=== PATIENT | female | born 1960 | race Caucasian/White ===

== ENCOUNTER 2016-03-16 13:44 | Inpatient (IN) | payer MEDICARE, MEDICAID ==
[~2016-03-16] VITALS: Ht 175.3 cm; Wt 118.0 kg
[~2016-03-16 13:44] MED LIST: AMLO2.5T PO; ATEN25 PO; DIVA500T52 PO; FURO20 PO; GABA-533 PO; MULT-69 PO; PANT40TA25 PO; TRIF10 PO; VALS160T2 PO; VITAD1000 PO
[2016-03-16 14:53] LABS: BASOPHILS % (AUTO) 0.6 % (0.0-2.0); EOSINOPHILS % (AUTO) 1.4 % (1.0-6.0); HEMATOCRIT 46.7 % (36-46); HEMOGLOBIN 15.8 g/dL (12.0-16.0); LYMPHOCYTES # (AUTO) 2.7 K/uL (1.0-4.8); LYMPHOCYTES % (AUTO) 23.2 % (22.0-44.0); MEAN CORPUSCULAR HEMOGLOBIN 30.3 pg (26.0-34.0); MEAN CORPUSCULAR HGB CONC 33.8 G/dL (31.0-37.0); MEAN CORPUSCULAR VOLUME 90 fL (80-100); NEUTROPHILS # (AUTO) 7.6 K/uL (1.8-7.7); NEUTROPHILS % (AUTO) 65.8 % (40.0-70.0); PLATELET COUNT (AUTO) 260 K/uL (150-450); RED CELL DISTRIBUTION WIDTH 15.2 % (11.5-14.5); WHITE BLOOD COUNT (AUTO) 11.5 K/uL (4.5-11.0)
[2016-03-16 15:49] LABS: ANION GAP 20 mmol/L (8-16); CALCIUM, TOTAL 9.8 mg/dL (8.8-10.5); CARBON DIOXIDE 19 mmol/L (22-29); CHLORIDE 99 mmol/L (98-107); CREATININE 1.73 mg/dL (0.60-1.30); GLOMERULAR FILTR. RATE CALC 30 mL/min (>60); POTASSIUM 3.5 mmol/L (3.5-5.1); SODIUM SERUM 138 mmol/L (136-145); UREA NITROGEN, BLOOD 40 mg/dL (7-18)
[2016-03-16 15:53] LABS: ALANINE AMINOTRANSFERASE 96 U/L (12-78); ALBUMIN 4.4 g/dL (3.4-5.0); ASPARTATE AMINOTRANSFERASE 126 U/L (15-37); BILIRUBIN,TOTAL 1.9 mg/dL (0.1-1.0); TOTAL PROTEIN, SERUM 9.7 g/dL (6.4-8.2)
[2016-03-16] MEDS ORDERED: LORazepam 1 MG TABLET PO ONE (17:15)
[2016-03-16] MEDS ORDERED: SODIUM CHLORIDE 0.9% 500 ML IV ONE (17:15)
[2016-03-16] MEDS ORDERED: TRIFLUOPERAZINE HCL 10 MG TABLET PO ONE (17:15)
[2016-03-16] MEDS ORDERED: ZOLPIDEM TARTRATE 10 MG TABLET PO PRN (18:00)
[2016-03-16] MEDS ORDERED: LORazepam 2 MG TABLET PO PRN (18:00)
[2016-03-16] MEDS ORDERED: HALOPERIDOL 5 MG TABLET PO PRN (18:00)
[2016-03-16 19:57] VITALS: BP 118/76
[2016-03-16] MEDS ORDERED: TRIFLUOPERAZINE HCL 10 MG TABLET PO SCH (21:00)
[2016-03-17] MEDS ORDERED: -PHARMACY VACCINE NOTE- MISC ONE ×2 (07:45)
[2016-03-17] MEDS ORDERED: INFLUENZA VIRUS VACCINE QVS 2016-17 (3YR+)/PF 60 MCG/0.5 ML SYRINGE IM ONE (07:45)
[2016-03-17] MEDS ORDERED: IBUPROFEN 600 MG TABLET PO PRN (10:30)
[2016-03-17] MEDS ORDERED: BACITRACIN 28.4 GM OINTMENT TP PRN (10:30)
[2016-03-17] MEDS ORDERED: ACETAMINOPHEN 325 MG TABLET PO PRN (10:30)
[2016-03-17] MEDS ORDERED: PETROLATUM,WHITE 71 GM JELLY TP PRN (10:30)
[2016-03-17] MEDS ORDERED: MAG HYDROX/AL HYDROX/SIMETH ES 30 ML SUSPENSION UDCUP PO PRN (10:30)
[2016-03-17] MEDS ORDERED: LOPERAMIDE HCL 2 MG CAPSULE PO PRN (10:30)
[2016-03-17] MEDS ORDERED: ONDANSETRON HCL 4 MG TABLET PO PRN (10:30)
[2016-03-17] MEDS ORDERED: ALBUTEROL SULFATE HFA 90 MCG/PUFF 8 GM INHALER IH PRN (10:30)
[2016-03-17] MEDS ORDERED: MAGNESIUM HYDROXIDE SUSPENSION 30 ML UDCUP PO PRN (10:30)
[2016-03-17] MEDS ORDERED: BENZOCAINE/MENTHOL LOZENGE [8 LOZENGES/PACKET] MM PRN (10:45)
[2016-03-17] MEDS: NICOTINE 21 MG/24 HOUR PATCH TD SCH (10:45)
[2016-03-17 16:30] VITALS: BP 121/64
[2016-03-17] MEDS: TRIFLUOPERAZINE HCL 10 MG TABLET PO SCH (20:30)
[2016-03-17] MEDS: DIVALPROEX SODIUM 500 MG ER TABLET PO SCH (20:31)
[2016-03-18 08:22] LABS: ANION GAP 6 mmol/L (8-16); CALCIUM, TOTAL 8.5 mg/dL (8.8-10.5); CARBON DIOXIDE 29 mmol/L (22-29); CHLORIDE 104 mmol/L (98-107); CREATININE 0.78 mg/dL (0.60-1.30); GLOMERULAR FILTR. RATE CALC > 60 mL/min (>60); SODIUM SERUM 139 mmol/L (136-145); UREA NITROGEN, BLOOD 28 mg/dL (7-18)
[2016-03-18] MEDS: NICOTINE 21 MG/24 HOUR PATCH TD SCH (09:00)
[2016-03-18] MEDS: CHOLECALCIFEROL (VIT D3) 1,000 UNITS TABLET PO SCH (09:05)
[2016-03-18] MEDS: OMEPRAZOLE 20 MG CAPSULE PO SCH (09:05)
[2016-03-18] MEDS ORDERED: POTASSIUM CHLORIDE 20 MEQ ER TABLET PO ONE (10:45)
[2016-03-18 13:29] VITALS: BP 120/64
[2016-03-18 16:00] VITALS: BP 147/78
[2016-03-18] MEDS: DIVALPROEX SODIUM 500 MG ER TABLET PO SCH (21:38)
[2016-03-18] MEDS: TRIFLUOPERAZINE HCL 10 MG TABLET PO SCH (21:38)
[2016-03-19 07:14] LABS: CHOL/HDL RATIO 3.3 (3.9-5.7); POTASSIUM 3.8 mmol/L (3.5-5.1); THYROID STIMULATING HORMONE 3.16 uIU/mL (0.36-3.74)
[2016-03-19 08:13] VITALS: BP 156/76
[2016-03-19] MEDS: CHOLECALCIFEROL (VIT D3) 1,000 UNITS TABLET PO SCH (08:47)
[2016-03-19] MEDS: OMEPRAZOLE 20 MG CAPSULE PO SCH (08:48)
[2016-03-19] MEDS: NICOTINE 21 MG/24 HOUR PATCH TD SCH (09:00)
[2016-03-19 18:14] VITALS: BP 123/75
[2016-03-19] MEDS: TRIFLUOPERAZINE HCL 10 MG TABLET PO SCH (21:33)
[2016-03-19] MEDS: DIVALPROEX SODIUM 500 MG ER TABLET PO SCH (21:34)
[2016-03-20 08:03] VITALS: BP 173/117
[2016-03-20] MEDS: CloNIDine HCL 0.1 MG TABLET PO PRN (08:05)
[2016-03-20] MEDS: OMEPRAZOLE 20 MG CAPSULE PO SCH (08:05)
[2016-03-20] MEDS: CHOLECALCIFEROL (VIT D3) 1,000 UNITS TABLET PO SCH (08:05)
[2016-03-20] MEDS: NICOTINE 21 MG/24 HOUR PATCH TD SCH (09:00)
[2016-03-20 13:27] VITALS: BP 139/85
[2016-03-20 17:45] VITALS: BP 171/95
[2016-03-20] MEDS: DIVALPROEX SODIUM 500 MG ER TABLET PO SCH (20:41)
[2016-03-20] MEDS: TRIFLUOPERAZINE HCL 10 MG TABLET PO SCH (20:42)
[2016-03-20 21:46] VITALS: BP 158/96
[2016-03-21 06:55] VITALS: BP 140/86
[2016-03-21 08:00] VITALS: BP 143/94
[2016-03-21] MEDS: CHOLECALCIFEROL (VIT D3) 1,000 UNITS TABLET PO SCH (08:32)
[2016-03-21] MEDS: VALSARTAN 160 MG TABLET PO SCH (08:32)
[2016-03-21] MEDS: OMEPRAZOLE 20 MG CAPSULE PO SCH (08:32)
[2016-03-21] MEDS: FUROSEMIDE 20 MG TABLET PO SCH (08:32)
[2016-03-21] MEDS: NICOTINE 21 MG/24 HOUR PATCH TD SCH (09:00)
[2016-03-21 17:49] VITALS: BP 181/113
[2016-03-21] MEDS: CloNIDine HCL 0.1 MG TABLET PO PRN (17:53)
[2016-03-21 18:34] VITALS: BP 133/86
[2016-03-21] MEDS: DIVALPROEX SODIUM 500 MG ER TABLET PO SCH (20:18)
[2016-03-21] MEDS: TRIFLUOPERAZINE HCL 10 MG TABLET PO SCH (20:18)
[2016-03-22 08:21] VITALS: BP 146/92
[2016-03-22] MEDS: CHOLECALCIFEROL (VIT D3) 1,000 UNITS TABLET PO SCH (08:57)
[2016-03-22] MEDS: VALSARTAN 160 MG TABLET PO SCH (08:57)
[2016-03-22] MEDS: OMEPRAZOLE 20 MG CAPSULE PO SCH (08:57)
[2016-03-22] MEDS: FUROSEMIDE 20 MG TABLET PO SCH (08:57)
[2016-03-22] MEDS: NICOTINE 21 MG/24 HOUR PATCH TD SCH (09:00)
[2016-03-22] MEDS ORDERED: OMEP20 PO (11:43)
== END 2016-03-22 14:35 | disposition home or self-care (01) | DRG 885 ==
LOC: EMS 13:47 → 3EC 18:02
DX: F25.1 Schizoaffective disorder, depressive type (principal); N17.9 Acute kidney failure, unspecified; J44.9 Chronic obstructive pulmonary disease, unspecified; B18.2 Chronic viral hepatitis C; I10 Essential (primary) hypertension; M19.90 Unspecified osteoarthritis, unspecified site; K21.9 Gastro-esophageal reflux disease without esophagitis; Z91.19 Patient's noncompliance with other medical treatment and regimen; E66.01 Morbid (severe) obesity due to excess calories; K59.00 Constipation, unspecified; G89.29 Other chronic pain; E55.9 Vitamin D deficiency, unspecified; F15.10 Other stimulant abuse, uncomplicated; F17.210 Nicotine dependence, cigarettes, uncomplicated; Z68.38 Body mass index [BMI] 38.0-38.9, adult; Z88.5 Allergy status to narcotic agent; Z88.0 Allergy status to penicillin; Z91.030 Bee allergy status; Z79.899 Other long term (current) drug therapy; Z98.890 Other specified postprocedural states; Z71.6 Tobacco abuse counseling; Z71.51 Drug abuse counseling and surveillance of drug abuser
CPT/HCPCS: 82306; 84132; 84443; 99285; G0480; J3535; J7040

== ENCOUNTER 2016-07-29 18:05 | Inpatient (IN) | payer MEDICARE, MEDICAID ==
[~2016-07-29] VITALS: Ht 175.3 cm; Wt 120.7 kg
[~2016-07-29 18:05] MED LIST changes: -AMLO2.5T PO; -ATEN25 PO; -GABA-533 PO; -MULT-69 PO; +OMEP20 PO; -PANT40TA25 PO
[2016-07-29] MEDS ORDERED: QUEtiapine FUMARATE 100 MG TABLET PO PRN (19:00)
[2016-07-29] MEDS ORDERED: LORazepam 2 MG TABLET PO PRN (19:00)
[2016-07-29 19:28] VITALS: BP 123/81
[2016-07-29] MEDS ORDERED: QUEtiapine FUMARATE 200 MG TABLET PO SCH (21:00)
[2016-07-29] MEDS: DIVALPROEX SODIUM 500 MG ER TABLET PO SCH (21:23)
[2016-07-30 08:19] LABS: HEMOGLOBIN A1C 5.3 % (4.5-6.2)
[2016-07-30 08:27] LABS: BASOPHILS % (AUTO) 0.5 % (0.0-2.0); EOSINOPHILS % (AUTO) 3.5 % (1.0-6.0); HEMATOCRIT 44.6 % (36-46); HEMOGLOBIN 15.2 g/dL (12.0-16.0); LYMPHOCYTES # (AUTO) 2.9 K/uL (1.0-4.8); MEAN CORPUSCULAR HEMOGLOBIN 32.3 pg (26.0-34.0); MEAN CORPUSCULAR HGB CONC 34.1 G/dL (31.0-37.0); MEAN CORPUSCULAR VOLUME 95 fL (80-100); MONOCYTES # (AUTO) 0.6 K/uL (0.1-1.0); MONOCYTES % (AUTO) 6.6 % (2.0-9.0); NEUTROPHILS # (AUTO) 4.7 K/uL (1.8-7.7); NEUTROPHILS % (AUTO) 55.4 % (40.0-70.0); PLATELET COUNT (AUTO) 219 K/uL (150-450); RED BLOOD CELL COUNT(AUTO) 4.71 MIL/uL (4.00-5.20); WHITE BLOOD COUNT (AUTO) 8.6 K/uL (4.5-11.0)
[2016-07-30] MEDS ORDERED: BACITRACIN 28.4 GM OINTMENT TP PRN (08:30)
[2016-07-30] MEDS ORDERED: ALBUTEROL SULFATE HFA 90 MCG/PUFF 8 GM INHALER IH PRN (08:30)
[2016-07-30] MEDS ORDERED: LOPERAMIDE HCL 2 MG CAPSULE PO PRN ×3 (08:30→15:45)
[2016-07-30] MEDS ORDERED: MAGNESIUM HYDROXIDE SUSPENSION 30 ML UDCUP PO PRN (08:30)
[2016-07-30] MEDS ORDERED: ONDANSETRON HCL 4 MG TABLET PO PRN (08:30)
[2016-07-30] MEDS ORDERED: CloNIDine HCL 0.1 MG TABLET PO PRN (08:30)
[2016-07-30] MEDS ORDERED: GuaiFENesin/D-METHORPHAN/PHENYLEPH 5 ML LIQUID ORAL.SYG PO PRN (08:30)
[2016-07-30] MEDS ORDERED: ACETAMINOPHEN 325 MG TABLET PO PRN (08:30)
[2016-07-30] MEDS ORDERED: PETROLATUM,WHITE 71 GM JELLY TP PRN (08:30)
[2016-07-30 08:41] VITALS: BP 161/108
[2016-07-30 08:49] LABS: ALANINE AMINOTRANSFERASE 65 U/L (12-78); ALBUMIN 3.2 g/dL (3.4-5.0); ANION GAP 11 mmol/L (8-16); ASPARTATE AMINOTRANSFERASE 89 U/L (15-37); CALCIUM, TOTAL 8.6 mg/dL (8.8-10.5); CARBON DIOXIDE 26 mmol/L (22-29); CHLORIDE 102 mmol/L (98-107); CHOL/HDL RATIO 3.7 (3.9-5.7); CREATININE 0.85 mg/dL (0.60-1.30); GLOMERULAR FILTR. RATE CALC > 60 mL/min (>60); POTASSIUM 3.4 mmol/L (3.5-5.1); SODIUM SERUM 139 mmol/L (136-145); THYROID STIMULATING HORMONE 1.72 uIU/mL (0.36-3.74); TOTAL PROTEIN, SERUM 7.8 g/dL (6.4-8.2); UREA NITROGEN, BLOOD 12 mg/dL (7-18)
[2016-07-30] MEDS ORDERED: POTASSIUM CHLORIDE 20 MEQ ER TABLET PO ONE (09:15)
[2016-07-30] MEDS: OMEPRAZOLE 20 MG CAPSULE PO SCH (09:50)
[2016-07-30] MEDS: FUROSEMIDE 20 MG TABLET PO SCH (09:50)
[2016-07-30] MEDS: CHOLECALCIFEROL (VIT D3) 1,000 UNITS TABLET PO SCH (09:51)
[2016-07-30] MEDS: DOCUSATE SODIUM 100 MG CAPSULE PO SCH (09:51)
[2016-07-30] MEDS ORDERED: PROMETHAZINE HCL 25 MG TABLET PO PRN (11:15)
[2016-07-30] MEDS ORDERED: TUBERCULIN, PURIFIED PROTEIN DERIVATIVE 5 TU/0.1 ML SYG ID ONE (11:15)
[2016-07-30] MEDS ORDERED: HydrOXYzine PAMOATE 50 MG CAPSULE PO PRN ×2 (11:15→15:45)
[2016-07-30] MEDS ORDERED: GuaiFENesin/D-METHORPHAN [SUGAR-FREE] 200-20MG/10 ML SYRUP UDCUP PO PRN ×2 (11:15→15:45)
[2016-07-30] MEDS ORDERED: LORazepam 2 MG TABLET PO PRN (15:45)
[2016-07-30] MEDS ORDERED: CYANOCOBALAMIN 1,000 MCG/ML VIAL IM ONE (15:45)
[2016-07-30] MEDS: THIAMINE HCL 100 MG TABLET PO SCH (16:30)
[2016-07-30] MEDS ORDERED: THIAMINE HCL 100 MG TABLET PO SCH (17:00)
[2016-07-30] MEDS: MULTIVITAMINS WITH MINERALS, THERAPEUTIC TABLET PO SCH (17:00)
[2016-07-30 17:06] VITALS: BP 133/83
[2016-07-30] MEDS: IBUPROFEN 600 MG TABLET PO PRN (17:15)
[2016-07-30 18:15] VITALS: BP 129/82
[2016-07-30] MEDS: OLANZapine 5 MG RAPDIS TABLET PO SCH (20:19)
[2016-07-30] MEDS: DIVALPROEX SODIUM 500 MG ER TABLET PO SCH (20:19)
[2016-07-31 06:39] VITALS: BP 123/76
[2016-07-31] MEDS ORDERED: LORazepam 2 MG TABLET PO PRN (07:00)
[2016-07-31 08:14] VITALS: BP 147/91
[2016-07-31] MEDS ORDERED: MULTIVITAMINS WITH MINERALS, THERAPEUTIC TABLET PO SCH (09:00)
[2016-07-31] MEDS: FLUoxetine HCL 20 MG CAPSULE PO SCH (09:39)
[2016-07-31] MEDS: LORazepam 2 MG TABLET PO SCH ×2 (09:39→14:01)
[2016-07-31] MEDS: THIAMINE HCL 100 MG TABLET PO SCH (09:39)
[2016-07-31] MEDS: CHOLECALCIFEROL (VIT D3) 1,000 UNITS TABLET PO SCH (09:39)
[2016-07-31] MEDS: FUROSEMIDE 20 MG TABLET PO SCH (09:39)
[2016-07-31] MEDS: DOCUSATE SODIUM 100 MG CAPSULE PO SCH (09:39)
[2016-07-31] MEDS: NALTREXONE HCL 50 MG TABLET PO SCH (09:40)
[2016-07-31] MEDS: FOLIC ACID 1 MG TABLET PO SCH (09:40)
[2016-07-31] MEDS: OMEPRAZOLE 20 MG CAPSULE PO SCH (09:40)
[2016-07-31] MEDS: MULTIVITAMINS WITH MINERALS, THERAPEUTIC TABLET PO SCH (09:40)
[2016-07-31 17:29] VITALS: BP 165/80
[2016-07-31] MEDS: OLANZapine 5 MG RAPDIS TABLET PO SCH (20:22)
[2016-07-31] MEDS: DIVALPROEX SODIUM 500 MG ER TABLET PO SCH (20:22)
[2016-07-31] MEDS: MAG HYDROX/AL HYDROX/SIMETH ES 30 ML SUSPENSION UDCUP PO PRN (21:38)
[2016-08-01 01:40] VITALS: BP 136/82
[2016-08-01] MEDS: IBUPROFEN 600 MG TABLET PO PRN (01:44)
[2016-08-01 09:06] VITALS: BP 153/89
[2016-08-01] MEDS: NALTREXONE HCL 50 MG TABLET PO SCH (09:46)
[2016-08-01] MEDS: FLUoxetine HCL 20 MG CAPSULE PO SCH (09:46)
[2016-08-01] MEDS: FOLIC ACID 1 MG TABLET PO SCH (09:46)
[2016-08-01] MEDS: OMEPRAZOLE 20 MG CAPSULE PO SCH (09:46)
[2016-08-01] MEDS: DOCUSATE SODIUM 100 MG CAPSULE PO SCH (09:47)
[2016-08-01] MEDS: MULTIVITAMINS WITH MINERALS, THERAPEUTIC TABLET PO SCH (09:47)
[2016-08-01] MEDS: POTASSIUM CHLORIDE 8 MEQ ER TABLET PO SCH (09:47)
[2016-08-01] MEDS: CHOLECALCIFEROL (VIT D3) 1,000 UNITS TABLET PO SCH (09:47)
[2016-08-01] MEDS: FUROSEMIDE 20 MG TABLET PO SCH (09:47)
[2016-08-01 16:20] VITALS: BP 183/114
[2016-08-01 16:37] VITALS: BP 127/79
[2016-08-01] MEDS ORDERED: FOLIC ACID 1 MG TABLET PO SCH (17:00)
[2016-08-01] MEDS: DIVALPROEX SODIUM 500 MG ER TABLET PO SCH (20:04)
[2016-08-01] MEDS: OLANZapine 5 MG RAPDIS TABLET PO SCH (20:04)
[2016-08-01] MEDS: ZOLPIDEM TARTRATE 10 MG TABLET PO PRN (21:02)
[2016-08-02] MEDS: IBUPROFEN 600 MG TABLET PO PRN (02:32)
[2016-08-02 02:33] VITALS: BP 131/76
[2016-08-02] MEDS ORDERED: LORazepam 1 MG TABLET PO PRN (07:00)
[2016-08-02 08:28] LABS: POTASSIUM 3.9 mmol/L (3.5-5.1)
[2016-08-02] MEDS ORDERED: LORazepam 1 MG TABLET PO SCH (09:00)
[2016-08-02] MEDS: FOLIC ACID 1 MG TABLET PO SCH (09:58)
[2016-08-02] MEDS: MULTIVITAMINS WITH MINERALS, THERAPEUTIC TABLET PO SCH (09:58)
[2016-08-02] MEDS: DOCUSATE SODIUM 100 MG CAPSULE PO SCH (09:58)
[2016-08-02] MEDS: POTASSIUM CHLORIDE 8 MEQ ER TABLET PO SCH (09:58)
[2016-08-02] MEDS: NALTREXONE HCL 50 MG TABLET PO SCH (09:58)
[2016-08-02] MEDS: OMEPRAZOLE 20 MG CAPSULE PO SCH (09:58)
[2016-08-02] MEDS: FUROSEMIDE 20 MG TABLET PO SCH (09:58)
[2016-08-02] MEDS: CHOLECALCIFEROL (VIT D3) 1,000 UNITS TABLET PO SCH (09:58)
[2016-08-02] MEDS: FLUoxetine HCL 20 MG CAPSULE PO SCH (09:58)
[2016-08-02 18:04] VITALS: BP 146/85
[2016-08-02] MEDS: DIVALPROEX SODIUM 500 MG ER TABLET PO SCH (20:56)
[2016-08-02] MEDS: ZOLPIDEM TARTRATE 10 MG TABLET PO PRN (20:56)
[2016-08-02] MEDS: OLANZapine 5 MG RAPDIS TABLET PO SCH (20:56)
[2016-08-03 00:50] VITALS: BP 132/77
[2016-08-03] MEDS: OLANZapine 5 MG RAPDIS TABLET PO PRN (00:56)
[2016-08-03] MEDS: IBUPROFEN 600 MG TABLET PO PRN ×2 (04:10→20:07)
[2016-08-03] MEDS ORDERED: LORazepam 1 MG TABLET PO PRN (07:00)
[2016-08-03] MEDS: MULTIVITAMINS WITH MINERALS, THERAPEUTIC TABLET PO SCH (09:43)
[2016-08-03] MEDS: NALTREXONE HCL 50 MG TABLET PO SCH (09:44)
[2016-08-03] MEDS: CHOLECALCIFEROL (VIT D3) 1,000 UNITS TABLET PO SCH (09:44)
[2016-08-03] MEDS: OMEPRAZOLE 20 MG CAPSULE PO SCH (09:44)
[2016-08-03] MEDS: DOCUSATE SODIUM 100 MG CAPSULE PO SCH (09:44)
[2016-08-03] MEDS: FOLIC ACID 1 MG TABLET PO SCH (09:44)
[2016-08-03] MEDS: FLUoxetine HCL 20 MG CAPSULE PO SCH (09:44)
[2016-08-03] MEDS: POTASSIUM CHLORIDE 8 MEQ ER TABLET PO SCH (09:44)
[2016-08-03] MEDS: FUROSEMIDE 20 MG TABLET PO SCH (09:44)
[2016-08-03 12:00] VITALS: BP 169/98
[2016-08-03 12:30] VITALS: BP 155/88
[2016-08-03 16:10] VITALS: BP 135/88
[2016-08-03 16:25] VITALS: BP 135/88
[2016-08-03] MEDS: DIVALPROEX SODIUM 500 MG ER TABLET PO SCH (20:05)
[2016-08-03] MEDS: OLANZapine 5 MG RAPDIS TABLET PO SCH (20:05)
[2016-08-03 20:07] VITALS: BP 134/84
[2016-08-04 03:45] VITALS: BP 150/82
[2016-08-04] MEDS: CHOLECALCIFEROL (VIT D3) 1,000 UNITS TABLET PO SCH (09:41)
[2016-08-04] MEDS: OMEPRAZOLE 20 MG CAPSULE PO SCH (09:42)
[2016-08-04] MEDS: FOLIC ACID 1 MG TABLET PO SCH (09:42)
[2016-08-04] MEDS: FUROSEMIDE 20 MG TABLET PO SCH (09:42)
[2016-08-04] MEDS: FLUoxetine HCL 20 MG CAPSULE PO SCH (09:42)
[2016-08-04] MEDS: POTASSIUM CHLORIDE 8 MEQ ER TABLET PO SCH (09:42)
[2016-08-04] MEDS: DOCUSATE SODIUM 100 MG CAPSULE PO SCH (09:42)
[2016-08-04] MEDS: MULTIVITAMINS WITH MINERALS, THERAPEUTIC TABLET PO SCH (09:43)
[2016-08-04] MEDS: NALTREXONE HCL 50 MG TABLET PO SCH (09:43)
[2016-08-04] MEDS: IBUPROFEN 600 MG TABLET PO PRN ×2 (10:07→21:13)
[2016-08-04 16:23] VITALS: BP 152/92
[2016-08-04] MEDS: ZOLPIDEM TARTRATE 10 MG TABLET PO PRN (21:14)
[2016-08-04] MEDS: DIVALPROEX SODIUM 500 MG ER TABLET PO SCH (21:14)
[2016-08-04] MEDS: OLANZapine 5 MG RAPDIS TABLET PO SCH (21:14)
[2016-08-05 01:46] VITALS: BP 158/86
[2016-08-05 06:40] VITALS: BP 158/90
[2016-08-05 08:10] VITALS: BP 158/100
[2016-08-05] MEDS: POTASSIUM CHLORIDE 8 MEQ ER TABLET PO SCH (09:12)
[2016-08-05] MEDS: NALTREXONE HCL 50 MG TABLET PO SCH (09:12)
[2016-08-05] MEDS: DOCUSATE SODIUM 100 MG CAPSULE PO SCH (09:12)
[2016-08-05] MEDS: TRIHEXYPHENIDYL HCL 2 MG TABLET PO SCH ×3 (09:12→16:13)
[2016-08-05] MEDS: FOLIC ACID 1 MG TABLET PO SCH (09:12)
[2016-08-05] MEDS: FUROSEMIDE 20 MG TABLET PO SCH (09:12)
[2016-08-05] MEDS: CHOLECALCIFEROL (VIT D3) 1,000 UNITS TABLET PO SCH (09:12)
[2016-08-05] MEDS: MULTIVITAMINS WITH MINERALS, THERAPEUTIC TABLET PO SCH (09:12)
[2016-08-05] MEDS: FLUoxetine HCL 20 MG CAPSULE PO SCH (09:12)
[2016-08-05] MEDS: OMEPRAZOLE 20 MG CAPSULE PO SCH (09:12)
[2016-08-05 10:45] VITALS: BP 158/100
[2016-08-05] MEDS: LISINOPRIL 10 MG TABLET PO SCH (11:37)
[2016-08-05 14:41] VITALS: BP 130/64
[2016-08-05 16:14] VITALS: BP 135/77
[2016-08-05] MEDS: IBUPROFEN 600 MG TABLET PO PRN (16:14)
[2016-08-05] MEDS: DIVALPROEX SODIUM 500 MG ER TABLET PO SCH (20:18)
[2016-08-05] MEDS: OLANZapine 5 MG RAPDIS TABLET PO SCH (20:18)
[2016-08-05] MEDS: ZOLPIDEM TARTRATE 10 MG TABLET PO PRN (21:03)
[2016-08-06 01:25] VITALS: BP 148/75
[2016-08-06 06:30] VITALS: BP 133/79
[2016-08-06] MEDS: IBUPROFEN 600 MG TABLET PO PRN (06:32)
[2016-08-06 08:33] VITALS: BP 159/92
[2016-08-06] MEDS: TRIHEXYPHENIDYL HCL 2 MG TABLET PO SCH ×3 (09:18→16:22)
[2016-08-06] MEDS: FOLIC ACID 1 MG TABLET PO SCH (09:18)
[2016-08-06] MEDS: CHOLECALCIFEROL (VIT D3) 1,000 UNITS TABLET PO SCH (09:18)
[2016-08-06] MEDS: NALTREXONE HCL 50 MG TABLET PO SCH (09:19)
[2016-08-06] MEDS: MULTIVITAMINS WITH MINERALS, THERAPEUTIC TABLET PO SCH (09:19)
[2016-08-06] MEDS: OMEPRAZOLE 20 MG CAPSULE PO SCH (09:19)
[2016-08-06] MEDS: POTASSIUM CHLORIDE 8 MEQ ER TABLET PO SCH (09:19)
[2016-08-06] MEDS: DULoxetine HCL 20 MG CAPSULE PO SCH (09:19)
[2016-08-06] MEDS: LISINOPRIL 10 MG TABLET PO SCH (09:19)
[2016-08-06] MEDS: DOCUSATE SODIUM 100 MG CAPSULE PO SCH (09:19)
[2016-08-06] MEDS: FUROSEMIDE 20 MG TABLET PO SCH (09:19)
[2016-08-06 16:00] VITALS: BP 139/76
[2016-08-06] MEDS: DIVALPROEX SODIUM 500 MG ER TABLET PO SCH (20:19)
[2016-08-06] MEDS: OLANZapine 5 MG RAPDIS TABLET PO SCH (20:19)
[2016-08-06] MEDS: ZOLPIDEM TARTRATE 10 MG TABLET PO PRN (21:03)
[2016-08-07 06:48] VITALS: BP 148/76
[2016-08-07] MEDS: FOLIC ACID 1 MG TABLET PO SCH (09:19)
[2016-08-07] MEDS: DOCUSATE SODIUM 100 MG CAPSULE PO SCH (09:20)
[2016-08-07] MEDS: TRIHEXYPHENIDYL HCL 2 MG TABLET PO SCH ×3 (09:20→16:41)
[2016-08-07] MEDS: OMEPRAZOLE 20 MG CAPSULE PO SCH (09:20)
[2016-08-07] MEDS: CHOLECALCIFEROL (VIT D3) 1,000 UNITS TABLET PO SCH (09:20)
[2016-08-07] MEDS: MULTIVITAMINS WITH MINERALS, THERAPEUTIC TABLET PO SCH (09:20)
[2016-08-07] MEDS: NALTREXONE HCL 50 MG TABLET PO SCH (09:20)
[2016-08-07] MEDS: DULoxetine HCL 20 MG CAPSULE PO SCH (09:20)
[2016-08-07] MEDS: FUROSEMIDE 20 MG TABLET PO SCH (09:20)
[2016-08-07] MEDS: LISINOPRIL 10 MG TABLET PO SCH (09:20)
[2016-08-07] MEDS: POTASSIUM CHLORIDE 8 MEQ ER TABLET PO SCH (09:20)
[2016-08-07 11:05] VITALS: BP 151/79
[2016-08-07 18:26] VITALS: BP 135/82
[2016-08-07] MEDS: IBUPROFEN 600 MG TABLET PO PRN (18:29)
[2016-08-07] MEDS: OLANZapine 5 MG RAPDIS TABLET PO SCH (20:07)
[2016-08-07] MEDS: DIVALPROEX SODIUM 500 MG ER TABLET PO SCH (20:07)
[2016-08-07] MEDS: ZOLPIDEM TARTRATE 10 MG TABLET PO PRN (20:53)
[2016-08-08 01:15] VITALS: BP 128/74
[2016-08-08] MEDS: OMEPRAZOLE 20 MG CAPSULE PO SCH (09:50)
[2016-08-08] MEDS: NALTREXONE HCL 50 MG TABLET PO SCH (09:51)
[2016-08-08] MEDS: LISINOPRIL 10 MG TABLET PO SCH (09:51)
[2016-08-08] MEDS: FOLIC ACID 1 MG TABLET PO SCH (09:51)
[2016-08-08] MEDS: POTASSIUM CHLORIDE 8 MEQ ER TABLET PO SCH (09:51)
[2016-08-08] MEDS: MULTIVITAMINS WITH MINERALS, THERAPEUTIC TABLET PO SCH (09:51)
[2016-08-08] MEDS: TRIHEXYPHENIDYL HCL 2 MG TABLET PO SCH ×3 (09:51→17:13)
[2016-08-08] MEDS: CHOLECALCIFEROL (VIT D3) 1,000 UNITS TABLET PO SCH (09:51)
[2016-08-08] MEDS: FUROSEMIDE 20 MG TABLET PO SCH (09:51)
[2016-08-08] MEDS: DOCUSATE SODIUM 100 MG CAPSULE PO SCH (09:51)
[2016-08-08] MEDS: DULoxetine HCL 20 MG CAPSULE PO SCH (09:52)
[2016-08-08 10:42] VITALS: BP 135/90
[2016-08-08 16:14] VITALS: BP 129/65
[2016-08-08] MEDS: DIVALPROEX SODIUM 500 MG ER TABLET PO SCH (20:49)
[2016-08-08] MEDS: OLANZapine 5 MG RAPDIS TABLET PO SCH (20:49)
[2016-08-08] MEDS: ZOLPIDEM TARTRATE 10 MG TABLET PO PRN (21:12)
[2016-08-09] MEDS: BENZOCAINE/MENTHOL LOZENGE MM PRN ×2 (00:58→10:37)
[2016-08-09 02:13] VITALS: BP 130/69
[2016-08-09] MEDS: OLANZapine 5 MG RAPDIS TABLET PO PRN (02:17)
[2016-08-09 07:35] LABS: BASOPHILS % (AUTO) 0.4 % (0.0-2.0); EOSINOPHILS % (AUTO) 2.3 % (1.0-6.0); HEMATOCRIT 35.5 % (36-46); HEMOGLOBIN 12.2 g/dL (12.0-16.0); LYMPHOCYTES # (AUTO) 2.7 K/uL (1.0-4.8); LYMPHOCYTES % (AUTO) 34.7 % (22.0-44.0); MEAN CORPUSCULAR HEMOGLOBIN 32.6 pg (26.0-34.0); MEAN CORPUSCULAR HGB CONC 34.5 G/dL (31.0-37.0); MEAN CORPUSCULAR VOLUME 95 fL (80-100); MONOCYTES # (AUTO) 0.9 K/uL (0.1-1.0); MONOCYTES % (AUTO) 11.5 % (2.0-9.0); NEUTROPHILS # (AUTO) 3.9 K/uL (1.8-7.7); NEUTROPHILS % (AUTO) 51.1 % (40.0-70.0); PLATELET COUNT (AUTO) 154 K/uL (150-450); RED BLOOD CELL COUNT(AUTO) 3.75 MIL/uL (4.00-5.20); RED CELL DISTRIBUTION WIDTH 13.2 % (11.5-14.5); WHITE BLOOD COUNT (AUTO) 7.7 K/uL (4.5-11.0)
[2016-08-09 08:18] LABS: ALBUMIN 2.9 g/dL (3.4-5.0); TOTAL PROTEIN, SERUM 7.3 g/dL (6.4-8.2)
[2016-08-09 08:47] LABS: BILIRUBIN,DIRECT 0.1 mg/dL (0.00-0.20); BILIRUBIN,TOTAL 0.5 mg/dL (0.1-1.0)
[2016-08-09 08:50] VITALS: BP 146/78
[2016-08-09] MEDS: TRIHEXYPHENIDYL HCL 2 MG TABLET PO SCH ×3 (08:55→16:58)
[2016-08-09] MEDS: LISINOPRIL 10 MG TABLET PO SCH (08:55)
[2016-08-09] MEDS: MULTIVITAMINS WITH MINERALS, THERAPEUTIC TABLET PO SCH (08:55)
[2016-08-09] MEDS: POTASSIUM CHLORIDE 8 MEQ ER TABLET PO SCH (08:55)
[2016-08-09] MEDS: DOCUSATE SODIUM 100 MG CAPSULE PO SCH (08:55)
[2016-08-09] MEDS: CHOLECALCIFEROL (VIT D3) 1,000 UNITS TABLET PO SCH (08:55)
[2016-08-09] MEDS: FUROSEMIDE 20 MG TABLET PO SCH (08:55)
[2016-08-09] MEDS: DULoxetine HCL 20 MG CAPSULE PO SCH (08:55)
[2016-08-09] MEDS: NALTREXONE HCL 50 MG TABLET PO SCH (08:55)
[2016-08-09] MEDS: FOLIC ACID 1 MG TABLET PO SCH (08:55)
[2016-08-09] MEDS: OMEPRAZOLE 20 MG CAPSULE PO SCH (08:55)
[2016-08-09 10:34] VITALS: BP 137/72
[2016-08-09] MEDS: IBUPROFEN 600 MG TABLET PO PRN (10:34)
[2016-08-09 16:11] VITALS: BP 125/73
[2016-08-09] MEDS: MAG HYDROX/AL HYDROX/SIMETH ES 30 ML SUSPENSION UDCUP PO PRN (17:32)
[2016-08-09] MEDS: DIVALPROEX SODIUM 500 MG ER TABLET PO SCH (20:25)
[2016-08-09] MEDS: OLANZapine 5 MG RAPDIS TABLET PO SCH (20:25)
[2016-08-10 02:01] VITALS: BP 131/100
[2016-08-10] MEDS: IBUPROFEN 600 MG TABLET PO PRN ×2 (02:04→09:42)
[2016-08-10 08:18] VITALS: BP 144/83
[2016-08-10] MEDS: CHOLECALCIFEROL (VIT D3) 1,000 UNITS TABLET PO SCH (08:45)
[2016-08-10] MEDS: DOCUSATE SODIUM 100 MG CAPSULE PO SCH (08:45)
[2016-08-10] MEDS: OMEPRAZOLE 20 MG CAPSULE PO SCH (08:45)
[2016-08-10] MEDS: FUROSEMIDE 20 MG TABLET PO SCH (08:45)
[2016-08-10] MEDS: POTASSIUM CHLORIDE 8 MEQ ER TABLET PO SCH (08:45)
[2016-08-10] MEDS: DULoxetine HCL 20 MG CAPSULE PO SCH (08:45)
[2016-08-10] MEDS: MULTIVITAMINS WITH MINERALS, THERAPEUTIC TABLET PO SCH (08:45)
[2016-08-10] MEDS: LISINOPRIL 10 MG TABLET PO SCH (08:45)
[2016-08-10] MEDS: NALTREXONE HCL 50 MG TABLET PO SCH (08:45)
[2016-08-10] MEDS: TRIHEXYPHENIDYL HCL 2 MG TABLET PO SCH ×3 (08:45→16:08)
[2016-08-10 09:43] VITALS: BP 139/86
[2016-08-10 16:12] VITALS: BP 150/79
[2016-08-10 18:11] VITALS: BP 135/77
[2016-08-10] MEDS: OLANZapine 5 MG RAPDIS TABLET PO SCH (20:18)
[2016-08-10] MEDS: DIVALPROEX SODIUM 500 MG ER TABLET PO SCH (21:00)
[2016-08-10] MEDS ORDERED: TRIFLUOPERAZINE HCL 5 MG TABLET PO SCH (21:00)
[2016-08-10] MEDS: ZOLPIDEM TARTRATE 10 MG TABLET PO PRN (22:35)
[2016-08-11] MEDS: BENZOCAINE/MENTHOL LOZENGE MM PRN (06:20)
[2016-08-11 06:28] VITALS: BP 132/81
[2016-08-11] MEDS: CHOLECALCIFEROL (VIT D3) 1,000 UNITS TABLET PO SCH (08:25)
[2016-08-11] MEDS: DOCUSATE SODIUM 100 MG CAPSULE PO SCH (08:25)
[2016-08-11] MEDS: FUROSEMIDE 20 MG TABLET PO SCH (08:25)
[2016-08-11] MEDS: NALTREXONE HCL 50 MG TABLET PO SCH (08:25)
[2016-08-11] MEDS: OMEPRAZOLE 20 MG CAPSULE PO SCH (08:25)
[2016-08-11] MEDS: LISINOPRIL 10 MG TABLET PO SCH (08:25)
[2016-08-11] MEDS: POTASSIUM CHLORIDE 8 MEQ ER TABLET PO SCH (08:25)
[2016-08-11] MEDS: MULTIVITAMINS WITH MINERALS, THERAPEUTIC TABLET PO SCH (08:25)
[2016-08-11] MEDS: TRIHEXYPHENIDYL HCL 2 MG TABLET PO SCH ×2 (08:25→12:36)
[2016-08-11] MEDS: DULoxetine HCL 20 MG CAPSULE PO SCH (08:25)
[2016-08-11 08:42] VITALS: BP 147/78
[2016-08-11] MEDS ORDERED: NALT50 PO (09:11)
[2016-08-11] MEDS ORDERED: DSS100 PO (09:11)
[2016-08-11] MEDS ORDERED: MV-M1TAB2 PO (09:11)
[2016-08-11] MEDS ORDERED: TRIF5 PO (09:11)
[2016-08-11] MEDS ORDERED: DULO20CA30 PO (09:11)
[2016-08-11] MEDS ORDERED: TRIH2TAB3 PO (09:11)
[2016-08-11] MEDS ORDERED: SLOWK8 PO (09:11)
[2016-08-11] MEDS ORDERED: OLAN5Z PO (09:11)
[2016-08-11] MEDS ORDERED: LISI-661 PO (09:11)
== END 2016-08-11 13:20 | disposition home or self-care (01) | DRG 885 ==
LOC: B3A 18:55 → EDSTATUS 19:10
PROVIDERS: ADMIT Psychiatry & Neurology Psychiatry; ATTEND Psychiatry & Neurology Psychiatry
DX: F25.1 Schizoaffective disorder, depressive type (principal); R45.851 Suicidal ideations; M19.90 Unspecified osteoarthritis, unspecified site; E66.9 Obesity, unspecified; J44.9 Chronic obstructive pulmonary disease, unspecified; I10 Essential (primary) hypertension; K21.9 Gastro-esophageal reflux disease without esophagitis; B18.2 Chronic viral hepatitis C; B35.6 Tinea cruris; E55.9 Vitamin D deficiency, unspecified; F15.90 Other stimulant use, unspecified, uncomplicated; F17.210 Nicotine dependence, cigarettes, uncomplicated; G89.4 Chronic pain syndrome; B02.9 Zoster without complications; E87.6 Hypokalemia; E83.51 Hypocalcemia; R26.9 Unspecified abnormalities of gait and mobility; F12.90 Cannabis use, unspecified, uncomplicated; Z71.51 Drug abuse counseling and surveillance of drug abuser; Z59.0 Homelessness; Z79.899 Other long term (current) drug therapy; Z91.19 Patient's noncompliance with other medical treatment and regimen; Z88.0 Allergy status to penicillin; Z88.5 Allergy status to narcotic agent; Z71.6 Tobacco abuse counseling; Z68.39 Body mass index [BMI] 39.0-39.9, adult
CPT/HCPCS: 82306; 83036; 84132; 84295; 84439; 84443; J3420

== ENCOUNTER 2016-08-03 13:22 | Emergency (ER) | payer MEDICARE, OTHER ==
[~2016-08-03] VITALS: Ht 175.3 cm; Wt 125.0 kg
[2016-08-03] MEDS ORDERED: KETOROLAC TROMETHAMINE 60 MG/2 ML VIAL IM ONE (14:45)
[2016-08-03 15:58] VITALS: BP 159/89
== END 2016-08-03 16:02 | disposition home or self-care (01) ==
LOC: EMS 13:28
DX: S70.01XA Contusion of right hip, initial encounter (principal); M54.9 Dorsalgia, unspecified; M79.601 Pain in right arm; I10 Essential (primary) hypertension; J44.9 Chronic obstructive pulmonary disease, unspecified; F17.200 Nicotine dependence, unspecified, uncomplicated; Z88.0 Allergy status to penicillin; Z88.5 Allergy status to narcotic agent; W18.39XA Other fall on same level, initial encounter; Y93.89 Activity, other specified; Y92.89 Other specified places as the place of occurrence of the external cause; Y99.8 Other external cause status
CPT/HCPCS: 96372; 99283; J1885

== ENCOUNTER 2016-11-02 19:30 | Inpatient (IN) | payer MEDICARE, MEDICAID ==
[~2016-11-02] VITALS: Ht 175.3 cm; Wt 124.5 kg
[~2016-11-02 19:30] MED LIST changes: +CARV3 PO; +DULO60CA44 PO; +FOLI1 PO; -FURO20 PO; +GABA-531 PO; +LISI-662 PO; +MULT-248 PO; +NALT50TA6 PO; +THIA100 PO; -VALS160T2 PO
[2016-11-02] MEDS ORDERED: LOPERAMIDE HCL 2 MG CAPSULE PO PRN (20:00)
[2016-11-02] MEDS ORDERED: ZOLPIDEM TARTRATE 10 MG TABLET PO PRN (20:00)
[2016-11-02] MEDS ORDERED: HydrOXYzine PAMOATE 50 MG CAPSULE PO PRN (20:00)
[2016-11-02] MEDS: FOLIC ACID 1 MG TABLET PO SCH (20:00)
[2016-11-02] MEDS ORDERED: CYANOCOBALAMIN 1,000 MCG/ML VIAL IM ONE (20:00)
[2016-11-02] MEDS ORDERED: QUEtiapine FUMARATE 100 MG TABLET PO PRN (20:00)
[2016-11-02] MEDS: MULTIVITAMINS WITH MINERALS, THERAPEUTIC TABLET PO SCH (20:00)
[2016-11-02] MEDS ORDERED: LORazepam 2 MG TABLET PO PRN ×2 (20:00)
[2016-11-02] MEDS ORDERED: GuaiFENesin/D-METHORPHAN [SUGAR-FREE] 200-20MG/10 ML SYRUP UDCUP PO PRN (20:00)
[2016-11-02 20:30] VITALS: BP 96/61
[2016-11-02] MEDS ORDERED: TRIFLUOPERAZINE HCL 10 MG TABLET PO SCH (21:00)
[2016-11-02] MEDS: THIAMINE HCL 100 MG TABLET PO SCH (21:00)
[2016-11-02] MEDS ORDERED: DIVALPROEX SODIUM 500 MG ER TABLET PO SCH (21:00)
[2016-11-02] MEDS: GABAPENTIN 300 MG CAPSULE PO SCH (21:00)
[2016-11-02 21:30] VITALS: BP 97/67
[2016-11-02 22:30] VITALS: BP 106/64
[2016-11-02] MEDS ORDERED: PNEUMOCOCCAL VACCINE POLYVALENT 0.5 ML VIAL [PPSV23] IM ONE (23:00)
[2016-11-02 23:30] VITALS: BP 111/82
[2016-11-03] MEDS ORDERED: IBUPROFEN 600 MG TABLET PO PRN (00:45)
[2016-11-03] MEDS ORDERED: ACETAMINOPHEN 325 MG TABLET PO PRN (00:45)
[2016-11-03 00:46] VITALS: BP 111/82
[2016-11-03 03:30] VITALS: BP 126/76
[2016-11-03] MEDS ORDERED: LORazepam 2 MG TABLET PO PRN (07:00)
[2016-11-03 08:31] LABS: BASOPHILS % (AUTO) 0.6 % (0.0-2.0); EOSINOPHILS % (AUTO) 5.6 % (1.0-6.0); HEMATOCRIT 38.1 % (36-46); HEMOGLOBIN 13.1 g/dL (12.0-16.0); LYMPHOCYTES # (AUTO) 2.1 K/uL (1.0-4.8); LYMPHOCYTES % (AUTO) 28.4 % (22.0-44.0); MEAN CORPUSCULAR HEMOGLOBIN 31.9 pg (26.0-34.0); MEAN CORPUSCULAR HGB CONC 34.3 G/dL (31.0-37.0); MEAN CORPUSCULAR VOLUME 93 fL (80-100); MONOCYTES # (AUTO) 0.6 K/uL (0.1-1.0); MONOCYTES % (AUTO) 8.5 % (2.0-9.0); NEUTROPHILS # (AUTO) 4.2 K/uL (1.8-7.7); NEUTROPHILS % (AUTO) 56.9 % (40.0-70.0); PLATELET COUNT (AUTO) 173 K/uL (150-450); RED CELL DISTRIBUTION WIDTH 14.2 % (11.5-14.5); WHITE BLOOD COUNT (AUTO) 7.4 K/uL (4.5-11.0)
[2016-11-03] MEDS: FOLIC ACID 1 MG TABLET PO SCH (08:37)
[2016-11-03] MEDS: GABAPENTIN 300 MG CAPSULE PO SCH (08:37)
[2016-11-03] MEDS: THIAMINE HCL 100 MG TABLET PO SCH (08:37)
[2016-11-03] MEDS: MULTIVITAMINS WITH MINERALS, THERAPEUTIC TABLET PO SCH (08:37)
[2016-11-03 08:38] VITALS: BP 119/67
[2016-11-03 08:45] LABS: HEMOGLOBIN A1C 5.8 % (4.5-6.2)
[2016-11-03] MEDS ORDERED: NALTREXONE HCL 50 MG TABLET PO SCH (09:00)
[2016-11-03] MEDS ORDERED: LORazepam 2 MG TABLET PO SCH (09:00)
[2016-11-03] MEDS ORDERED: DULoxetine HCL 60 MG CAPSULE PO SCH (09:00)
[2016-11-03 09:18] LABS: ALBUMIN 3.4 g/dL (3.4-5.0); BILIRUBIN,TOTAL 0.8 mg/dL (0.1-1.0); CALCIUM, TOTAL 8.5 mg/dL (8.8-10.5); CHOL/HDL RATIO 2.7 (3.9-5.7); CREATININE 1.2 mg/dL (0.60-1.30); POTASSIUM 4.2 mmol/L (3.5-5.1); THYROID STIMULATING HORMONE 3.86 uIU/mL (0.36-3.74); TOTAL PROTEIN, SERUM 8.6 g/dL (6.4-8.2)
[2016-11-05] MEDS ORDERED: LORazepam 1 MG TABLET PO PRN (07:00)
[2016-11-05] MEDS ORDERED: LORazepam 1 MG TABLET PO SCH (09:00)
[2016-11-06] MEDS ORDERED: LORazepam 1 MG TABLET PO PRN (07:00)
== END 2016-11-03 09:50 | disposition left against medical advice (07) | DRG 885 ==
LOC: EDSTATUS 20:16 → B2X 20:27
PROVIDERS: ADMIT Psychiatry & Neurology Psychiatry; ATTEND Psychiatry & Neurology Psychiatry
PROC: 3E0234Z Introduction of Serum, Toxoid and Vaccine into Muscle, Percutaneous Approach (ICD-10-PCS; principal; 2016-11-02)
DX: F25.0 Schizoaffective disorder, bipolar type (principal); R45.851 Suicidal ideations; E66.01 Morbid (severe) obesity due to excess calories; I10 Essential (primary) hypertension; B18.2 Chronic viral hepatitis C; Z23 Encounter for immunization; Z88.0 Allergy status to penicillin; Z88.6 Allergy status to analgesic agent; F12.90 Cannabis use, unspecified, uncomplicated; F32.9 Major depressive disorder, single episode, unspecified; G47.00 Insomnia, unspecified; G89.4 Chronic pain syndrome; F17.210 Nicotine dependence, cigarettes, uncomplicated; I48.91 Unspecified atrial fibrillation; J44.9 Chronic obstructive pulmonary disease, unspecified; M19.90 Unspecified osteoarthritis, unspecified site; Z91.19 Patient's noncompliance with other medical treatment and regimen; R26.2 Difficulty in walking, not elsewhere classified; Z53.21 Procedure and treatment not carried out due to patient leaving prior to being seen by health care provider; Z56.0 Unemployment, unspecified; Z71.6 Tobacco abuse counseling; Z71.51 Drug abuse counseling and surveillance of drug abuser
CPT/HCPCS: 83036; 84439; 84443; 87081; J3420

== ENCOUNTER 2018-05-10 14:43 | Inpatient (IN) | payer MEDICARE, MEDICAID ==
[~2018-05-10] VITALS: Ht 172.7 cm; Wt 101.3 kg
[~2018-05-10 14:43] MED LIST changes: +CARV12 PO; -CARV3 PO; +DSS100 PO; -DULO60CA44 PO; -FOLI1 PO; -GABA-531 PO; -LISI-662 PO; -MULT-248 PO; +NALT50TA PO; +SPIR25 PO; -THIA100 PO; +TRIH2TAB3 PO; -VITAD1000 PO
[2018-05-10] MEDS ORDERED: DIVA500T52 PO (15:17)
[2018-05-10 15:27] VITALS: BP 138/79
[2018-05-10] MEDS ORDERED: HALOPERIDOL 5 MG TABLET PO PRN (15:30)
[2018-05-10] MEDS ORDERED: ZOLPIDEM TARTRATE 10 MG TABLET PO PRN (15:30)
[2018-05-10] MEDS ORDERED: PNEUMOCOCCAL VACCINE POLYVALENT 0.5 ML VIAL [PPSV23] IM ONE (16:00)
[2018-05-10 16:20] VITALS: BP 115/70
[2018-05-10] MEDS: TRIHEXYPHENIDYL HCL 2 MG TABLET PO SCH (17:02)
[2018-05-10 17:20] VITALS: BP 154/90
[2018-05-10] MEDS ORDERED: BENZOCAINE/MENTHOL LOZENGE MM PRN (17:45)
[2018-05-10] MEDS ORDERED: MAG HYDROX/AL HYDROX/SIMETH ES 30 ML SUSPENSION UDCUP PO PRN (17:45)
[2018-05-10] MEDS ORDERED: PETROLATUM,WHITE 28 GM JELLY TP PRN (17:45)
[2018-05-10] MEDS ORDERED: CloNIDine HCL 0.1 MG TABLET PO PRN (17:45)
[2018-05-10] MEDS ORDERED: MAGNESIUM HYDROXIDE SUSPENSION 30 ML UDCUP PO PRN (17:45)
[2018-05-10] MEDS ORDERED: ALBUTEROL SULFATE HFA 90 MCG/PUFF 8 GM INHALER IH PRN (17:45)
[2018-05-10] MEDS ORDERED: LOPERAMIDE HCL 2 MG CAPSULE PO PRN (17:45)
[2018-05-10] MEDS ORDERED: IBUPROFEN 600 MG TABLET PO PRN (17:45)
[2018-05-10] MEDS ORDERED: BACITRACIN 28.4 GM OINTMENT TP PRN (17:45)
[2018-05-10] MEDS ORDERED: ACETAMINOPHEN 325 MG TABLET PO PRN (17:45)
[2018-05-10] MEDS ORDERED: ONDANSETRON HCL 4 MG TABLET PO PRN (17:45)
[2018-05-10 18:20] VITALS: BP 128/87
[2018-05-10] MEDS: LORazepam 2 MG TABLET PO PRN (19:18)
[2018-05-10 19:20] VITALS: BP 141/60
[2018-05-10] MEDS: DIVALPROEX SODIUM 500 MG ER TABLET PO SCH (21:47)
[2018-05-10] MEDS: TRIFLUOPERAZINE HCL 10 MG TABLET PO SCH (21:47)
[2018-05-11 00:36] VITALS: BP 105/68
[2018-05-11] MEDS: OMEPRAZOLE 20 MG CAPSULE PO SCH (08:08)
[2018-05-11] MEDS: SPIRONOLACTONE 25 MG TABLET PO SCH (08:08)
[2018-05-11] MEDS: NICOTINE 14 MG/24 HOUR PATCH TD SCH (08:08)
[2018-05-11] MEDS: CARVEDILOL 12.5 MG TABLET PO SCH ×2 (08:08→16:41)
[2018-05-11] MEDS: DOCUSATE SODIUM 100 MG CAPSULE PO SCH (08:08)
[2018-05-11] MEDS: TRIHEXYPHENIDYL HCL 2 MG TABLET PO SCH ×2 (08:08→16:41)
[2018-05-11 08:16] VITALS: BP 137/73
[2018-05-11 16:35] VITALS: BP 124/86
[2018-05-11] MEDS: TRIFLUOPERAZINE HCL 10 MG TABLET PO SCH (20:33)
[2018-05-11] MEDS: DIVALPROEX SODIUM 500 MG ER TABLET PO SCH (20:33)
[2018-05-12 07:20] VITALS: BP 138/80
[2018-05-12 08:23] VITALS: BP 140/80
[2018-05-12 08:33] LABS: BASOPHILS % (AUTO) 0.5 % (0.0-2.0); EOSINOPHILS % (AUTO) 4.3 % (1.0-6.0); HEMATOCRIT 36.8 % (36-46); HEMOGLOBIN 12.4 g/dL (12.0-16.0); LYMPHOCYTES # (AUTO) 2.1 K/uL (1.0-4.8); LYMPHOCYTES % (AUTO) 49.3 % (22.0-44.0); MEAN CORPUSCULAR HEMOGLOBIN 31.9 pg (26.0-34.0); MEAN CORPUSCULAR HGB CONC 33.9 G/dL (31.0-37.0); MEAN CORPUSCULAR VOLUME 94 fL (80-100); MONOCYTES # (AUTO) 0.3 K/uL (0.1-1.0); MONOCYTES % (AUTO) 6.2 % (2.0-9.0); NEUTROPHILS # (AUTO) 1.7 K/uL (1.8-7.7); NEUTROPHILS % (AUTO) 39.7 % (40.0-70.0); PLATELET COUNT (AUTO) 145 K/uL (150-450); RED CELL DISTRIBUTION WIDTH 14.5 % (11.5-14.5)
[2018-05-12] MEDS: SPIRONOLACTONE 25 MG TABLET PO SCH (08:45)
[2018-05-12] MEDS: OMEPRAZOLE 20 MG CAPSULE PO SCH (08:45)
[2018-05-12] MEDS: DOCUSATE SODIUM 100 MG CAPSULE PO SCH (08:45)
[2018-05-12] MEDS: NICOTINE 14 MG/24 HOUR PATCH TD SCH (08:46)
[2018-05-12] MEDS: CARVEDILOL 12.5 MG TABLET PO SCH ×2 (08:46→16:54)
[2018-05-12] MEDS: TRIHEXYPHENIDYL HCL 2 MG TABLET PO SCH ×2 (08:46→16:54)
[2018-05-12 09:01] LABS: HEMOGLOBIN A1C 5.2 % (4.5-6.2)
[2018-05-12 09:03] LABS: ALANINE AMINOTRANSFERASE 52 U/L (12-78); ALBUMIN 2.8 g/dL (3.4-5.0); ALKALINE PHOSPHATASE 111 U/L (46-116); ANION GAP 11 mmol/L (8-16); ASPARTATE AMINOTRANSFERASE 47 U/L (15-37); BILIRUBIN,TOTAL 0.5 mg/dL (0.1-1.0); CALCIUM, TOTAL 8.6 mg/dL (8.8-10.5); CARBON DIOXIDE 22 mmol/L (22-29); CHLORIDE 109 mmol/L (98-107); CHOL/HDL RATIO 3.4 (3.9-5.7); CHOLESTEROL 131 mg/dL (131-200); CREATININE 0.75 mg/dL (0.60-1.30); FREE T4 (FREE THYROXINE) 1.64 ng/dL (0.76-1.46); GLOMERULAR FILTR. RATE CALC > 60 mL/min (>60); GLUCOSE,RANDOM 91 mg/dL (70-110); HDL CHOLESTEROL 39 mg/dL (40-60); LDL CHOL (CALC.) 76 mg/dL (0-130); SODIUM SERUM 142 mmol/L (136-145); THYROID STIMULATING HORMONE 2.22 uIU/mL (0.36-3.74); TOTAL PROTEIN, SERUM 6.6 g/dL (6.4-8.2); TRIGLYCERIDES 78 mg/dL (15-150); UREA NITROGEN, BLOOD 21 mg/dL (7-18)
[2018-05-12 11:20] VITALS: BP 115/66
[2018-05-12 16:31] VITALS: BP 132/80
[2018-05-12] MEDS: TRIFLUOPERAZINE HCL 10 MG TABLET PO SCH (20:19)
[2018-05-12] MEDS: DIVALPROEX SODIUM 500 MG ER TABLET PO SCH (20:19)
[2018-05-13 04:51] VITALS: BP 139/90
[2018-05-13] MEDS: LORazepam 2 MG TABLET PO PRN ×2 (04:51→23:42)
[2018-05-13 04:54] VITALS: BP 139/90
[2018-05-13 08:10] VITALS: BP 152/88
[2018-05-13] MEDS: NICOTINE 14 MG/24 HOUR PATCH TD SCH (08:38)
[2018-05-13] MEDS: DOCUSATE SODIUM 100 MG CAPSULE PO SCH (08:40)
[2018-05-13] MEDS: SPIRONOLACTONE 25 MG TABLET PO SCH (08:40)
[2018-05-13] MEDS: TRIHEXYPHENIDYL HCL 2 MG TABLET PO SCH ×2 (08:40→16:29)
[2018-05-13] MEDS: CARVEDILOL 12.5 MG TABLET PO SCH ×2 (08:40→16:29)
[2018-05-13] MEDS: OMEPRAZOLE 20 MG CAPSULE PO SCH (08:40)
[2018-05-13 17:24] VITALS: BP 144/86
[2018-05-13 17:26] VITALS: BP 144/86
[2018-05-13] MEDS: TRIFLUOPERAZINE HCL 10 MG TABLET PO SCH (20:05)
[2018-05-13] MEDS: DIVALPROEX SODIUM 500 MG ER TABLET PO SCH (20:06)
[2018-05-13 20:38] VITALS: BP 142/89
[2018-05-14 04:28] VITALS: BP 155/89
[2018-05-14 04:31] VITALS: BP 155/89
[2018-05-14 08:30] VITALS: BP 127/75
[2018-05-14] MEDS: SPIRONOLACTONE 25 MG TABLET PO SCH (08:38)
[2018-05-14] MEDS: TRIHEXYPHENIDYL HCL 2 MG TABLET PO SCH ×2 (08:38→16:31)
[2018-05-14] MEDS: DOCUSATE SODIUM 100 MG CAPSULE PO SCH (08:38)
[2018-05-14] MEDS: OMEPRAZOLE 20 MG CAPSULE PO SCH (08:38)
[2018-05-14] MEDS: NICOTINE 14 MG/24 HOUR PATCH TD SCH (08:39)
[2018-05-14] MEDS: CARVEDILOL 25 MG TABLET PO SCH ×2 (08:39→16:31)
[2018-05-14] MEDS: LORazepam 2 MG TABLET PO PRN (12:13)
[2018-05-14 16:25] VITALS: BP 149/85
[2018-05-14 16:39] VITALS: BP 139/89
[2018-05-14] MEDS: TRIFLUOPERAZINE HCL 10 MG TABLET PO SCH (20:28)
[2018-05-14] MEDS: DIVALPROEX SODIUM 500 MG ER TABLET PO SCH (20:28)
[2018-05-15] VITALS (7 sets, daily range): BP systolic 133–153; BP diastolic 66–86
[2018-05-15] MEDS: OMEPRAZOLE 20 MG CAPSULE PO SCH (08:25)
[2018-05-15] MEDS: TRIHEXYPHENIDYL HCL 2 MG TABLET PO SCH ×2 (08:26→17:29)
[2018-05-15] MEDS: LORazepam 2 MG TABLET PO PRN ×2 (08:26→18:56)
[2018-05-15] MEDS: DOCUSATE SODIUM 100 MG CAPSULE PO SCH (08:26)
[2018-05-15] MEDS: NICOTINE 14 MG/24 HOUR PATCH TD SCH (08:26)
[2018-05-15] MEDS: CARVEDILOL 25 MG TABLET PO SCH ×2 (08:26→17:29)
[2018-05-15] MEDS: SPIRONOLACTONE 25 MG TABLET PO SCH (08:26)
[2018-05-15] MEDS: DIVALPROEX SODIUM 500 MG ER TABLET PO SCH (20:39)
[2018-05-15] MEDS: TRIFLUOPERAZINE HCL 10 MG TABLET PO SCH (20:39)
[2018-05-16 04:46] VITALS: BP 147/84
[2018-05-16] MEDS: CARVEDILOL 25 MG TABLET PO SCH ×2 (08:47→16:39)
[2018-05-16] MEDS: OMEPRAZOLE 20 MG CAPSULE PO SCH (08:47)
[2018-05-16] MEDS: DOCUSATE SODIUM 100 MG CAPSULE PO SCH (08:47)
[2018-05-16] MEDS: TRIHEXYPHENIDYL HCL 2 MG TABLET PO SCH ×2 (08:47→16:39)
[2018-05-16] MEDS: SPIRONOLACTONE 25 MG TABLET PO SCH (08:49)
[2018-05-16] MEDS: NICOTINE 14 MG/24 HOUR PATCH TD SCH (08:50)
[2018-05-16 13:31] VITALS: BP 137/84
[2018-05-16 16:00] VITALS: BP 125/68
[2018-05-16 18:45] VITALS: BP 117/62
[2018-05-16] MEDS: DIVALPROEX SODIUM 500 MG ER TABLET PO SCH (20:55)
[2018-05-16] MEDS: TRIFLUOPERAZINE HCL 10 MG TABLET PO SCH (20:55)
[2018-05-17 02:03] VITALS: BP 138/73
[2018-05-17] MEDS: DOCUSATE SODIUM 100 MG CAPSULE PO SCH (09:05)
[2018-05-17] MEDS: CARVEDILOL 25 MG TABLET PO SCH (09:05)
[2018-05-17] MEDS: SPIRONOLACTONE 25 MG TABLET PO SCH (09:05)
[2018-05-17] MEDS: TRIHEXYPHENIDYL HCL 2 MG TABLET PO SCH (09:05)
[2018-05-17] MEDS: OMEPRAZOLE 20 MG CAPSULE PO SCH (09:05)
[2018-05-17] MEDS: NICOTINE 14 MG/24 HOUR PATCH TD SCH (09:06)
[2018-05-17] MEDS: LORazepam 2 MG TABLET PO PRN (09:15)
[2018-05-17] MEDS ORDERED: CARV25 PO (11:45)
[2018-05-17 12:40] VITALS: BP 146/88
== END 2018-05-17 14:50 | disposition home or self-care (01) | DRG 885 ==
LOC: B2X 15:30
PROVIDERS: ADMIT Psychiatry & Neurology Psychiatry; ATTEND Psychiatry & Neurology Psychiatry
DX: F25.9 Schizoaffective disorder, unspecified (principal); B18.2 Chronic viral hepatitis C; R45.851 Suicidal ideations; Z59.0 Homelessness; F15.10 Other stimulant abuse, uncomplicated; E66.9 Obesity, unspecified; E03.9 Hypothyroidism, unspecified; F12.90 Cannabis use, unspecified, uncomplicated; F17.200 Nicotine dependence, unspecified, uncomplicated; F41.9 Anxiety disorder, unspecified; G47.00 Insomnia, unspecified; I10 Essential (primary) hypertension; J44.9 Chronic obstructive pulmonary disease, unspecified; M19.90 Unspecified osteoarthritis, unspecified site; Z88.0 Allergy status to penicillin; Z88.5 Allergy status to narcotic agent
CPT/HCPCS: 83036; 84439; 84443; 90732

== ENCOUNTER 2018-08-10 14:32 | Emergency (ER) | payer MEDICARE, OTHER ==
[~2018-08-10] VITALS: Ht 172.7 cm; Wt 125.0 kg
[~2018-08-10 14:32] MED LIST changes: -CARV12 PO; +CARV25 PO; -DSS100 PO; -NALT50TA PO; -NALT50TA6 PO
[2018-08-10 14:52] VITALS: BP 143/71
[2018-08-10 15:45] LABS: ANION GAP 9 mmol/L (8-16); CALCIUM, TOTAL 9.2 mg/dL (8.8-10.5); CARBON DIOXIDE 25 mmol/L (22-29); CHLORIDE 104 mmol/L (98-107); CREATININE 0.82 mg/dL (0.60-1.30); GLOMERULAR FILTR. RATE CALC > 60 mL/min (>60); GLUCOSE,RANDOM 97 mg/dL (70-110); POTASSIUM 3.8 mmol/L (3.5-5.1); SODIUM SERUM 138 mmol/L (136-145); UREA NITROGEN, BLOOD 16 mg/dL (7-18)
[2018-08-10 15:51] LABS: ALANINE AMINOTRANSFERASE 41 U/L (12-78); ALBUMIN 3.3 g/dL (3.4-5.0); ALKALINE PHOSPHATASE 131 U/L (46-116); ASPARTATE AMINOTRANSFERASE 48 U/L (15-37); BILIRUBIN,TOTAL 0.4 mg/dL (0.1-1.0); TOTAL PROTEIN, SERUM 8.5 g/dL (6.4-8.2)
[2018-08-10 15:53] LABS: BASOPHILS % (AUTO) 0.6 % (0.0-2.0); EOSINOPHILS % (AUTO) 2.2 % (1.0-6.0); HEMATOCRIT 41.4 % (36-46); HEMOGLOBIN 13.8 g/dL (12.0-16.0); LYMPHOCYTES # (AUTO) 2.9 K/uL (1.0-4.8); LYMPHOCYTES % (AUTO) 31.7 % (22.0-44.0); MEAN CORPUSCULAR HEMOGLOBIN 31.6 pg (26.0-34.0); MEAN CORPUSCULAR HGB CONC 33.4 G/dL (31.0-37.0); MEAN CORPUSCULAR VOLUME 95 fL (80-100); MONOCYTES # (AUTO) 0.7 K/uL (0.1-1.0); MONOCYTES % (AUTO) 7.2 % (2.0-9.0); NEUTROPHILS # (AUTO) 5.4 K/uL (1.8-7.7); NEUTROPHILS % (AUTO) 58.3 % (40.0-70.0); PLATELET COUNT (AUTO) 216 K/uL (150-450); RED BLOOD CELL COUNT(AUTO) 4.37 MIL/uL (4.00-5.20); RED CELL DISTRIBUTION WIDTH 13.6 % (11.5-14.5)
[2018-08-10 16:01] LABS: VALPROIC ACID 3 mcg/mL (50-100)
== END 2018-08-10 16:53 | disposition left against medical advice (07) ==
LOC: EMS 14:34
DX: F20.9 Schizophrenia, unspecified (principal); M79.662 Pain in left lower leg; M79.661 Pain in right lower leg; M54.9 Dorsalgia, unspecified; G89.29 Other chronic pain; J44.9 Chronic obstructive pulmonary disease, unspecified; F32.9 Major depressive disorder, single episode, unspecified; I10 Essential (primary) hypertension; F17.210 Nicotine dependence, cigarettes, uncomplicated; Z88.5 Allergy status to narcotic agent; Z88.0 Allergy status to penicillin
CPT/HCPCS: 36415; 80053; 80164; 85025; 99284; G0480

== ENCOUNTER 2018-08-14 15:41 | Inpatient (IN) | payer MEDICARE, MEDICAID ==
[~2018-08-14] VITALS: Ht 172.7 cm; Wt 114.9 kg
[2018-08-14 17:54] LABS: BASOPHILS % (AUTO) 0.8 % (0.0-2.0); EOSINOPHILS % (AUTO) 3.3 % (1.0-6.0); HEMATOCRIT 43.4 % (36-46); HEMOGLOBIN 14.5 g/dL (12.0-16.0); LYMPHOCYTES # (AUTO) 2.8 K/uL (1.0-4.8); MEAN CORPUSCULAR HEMOGLOBIN 31.6 pg (26.0-34.0); MEAN CORPUSCULAR HGB CONC 33.4 G/dL (31.0-37.0); MEAN CORPUSCULAR VOLUME 95 fL (80-100); MONOCYTES # (AUTO) 0.4 K/uL (0.1-1.0); MONOCYTES % (AUTO) 5.8 % (2.0-9.0); NEUTROPHILS # (AUTO) 3.5 K/uL (1.8-7.7); NEUTROPHILS % (AUTO) 50.1 % (40.0-70.0); PLATELET COUNT (AUTO) 246 K/uL (150-450); RED BLOOD CELL COUNT(AUTO) 4.59 MIL/uL (4.00-5.20); RED CELL DISTRIBUTION WIDTH 13.7 % (11.5-14.5)
[2018-08-14 18:06] LABS: ANION GAP 14 mmol/L (8-16); CALCIUM, TOTAL 9.7 mg/dL (8.8-10.5); CARBON DIOXIDE 18 mmol/L (22-29); CHLORIDE 105 mmol/L (98-107); CREATININE 0.91 mg/dL (0.60-1.30); GLOMERULAR FILTR. RATE CALC > 60 mL/min (>60); GLUCOSE,RANDOM 93 mg/dL (70-110); POTASSIUM 3.7 mmol/L (3.5-5.1); SODIUM SERUM 137 mmol/L (136-145); UREA NITROGEN, BLOOD 20 mg/dL (7-18)
[2018-08-14 18:20] LABS: ALANINE AMINOTRANSFERASE 62 U/L (12-78); ALBUMIN 3.6 g/dL (3.4-5.0); ALKALINE PHOSPHATASE 142 U/L (46-116); ASPARTATE AMINOTRANSFERASE 67 U/L (15-37); BILIRUBIN,TOTAL 0.6 mg/dL (0.1-1.0); TOTAL PROTEIN, SERUM 9.5 g/dL (6.4-8.2)
[2018-08-14 18:38] LABS: AMPHET/METH SCREEN,URINE POSITIVE (NEGATIVE); BARBITURATE SCREEN, URINE NEGATIVE (NEGATIVE); BENZODIAZEPINES SCREEN,URINE NEGATIVE (NEGATIVE); CANNABINOID SCREEN,URINE NEGATIVE (NEGATIVE); COCAINE SCREEN,URINE NEGATIVE (NEGATIVE); METHADONE SCREEN, URINE NEGATIVE (NEGATIVE); OPIATE SCREEN,URINE NEGATIVE (NEGATIVE); PHENCYCLIDINE SCREEN,URINE NEGATIVE (NEGATIVE)
[2018-08-14] MEDS ORDERED: ZOLPIDEM TARTRATE 10 MG TABLET PO PRN (19:45)
[2018-08-14] MEDS ORDERED: OLANZapine 5 MG RAPDIS TABLET PO PRN (19:45)
[2018-08-14] MEDS ORDERED: LORazepam 2 MG TABLET PO PRN (19:45)
[2018-08-14] MEDS ORDERED: ACETAMINOPHEN 500 MG TABLET PO ONE (20:45)
[2018-08-14] MEDS ORDERED: GuaiFENesin/D-METHORPHAN [SUGAR-FREE] 200-20MG/10 ML SYRUP UDCUP PO ONE (20:45)
[2018-08-14] MEDS ORDERED: OLANZapine 5 MG RAPDIS TABLET PO SCH (21:00)
[2018-08-15 02:21] VITALS: BP 120/91
[2018-08-15 07:42] LABS: HEMOGLOBIN A1C 5.3 % (4.5-6.2)
[2018-08-15 08:03] LABS: CHOL/HDL RATIO 3.2 (3.9-5.7); FREE T4 (FREE THYROXINE) 1.27 ng/dL (0.76-1.46); THYROID STIMULATING HORMONE 2.89 uIU/mL (0.36-3.74)
[2018-08-15 08:16] VITALS: BP 139/61
[2018-08-15] MEDS ORDERED: PETROLATUM,WHITE 28 GM JELLY TP PRN (08:45)
[2018-08-15] MEDS ORDERED: BACITRACIN 28.4 GM OINTMENT TP PRN (08:45)
[2018-08-15] MEDS ORDERED: ONDANSETRON HCL 4 MG TABLET PO PRN (08:45)
[2018-08-15] MEDS ORDERED: CloNIDine HCL 0.1 MG TABLET PO PRN (08:45)
[2018-08-15] MEDS ORDERED: ACETAMINOPHEN 325 MG TABLET PO PRN (08:45)
[2018-08-15] MEDS ORDERED: ALBUTEROL SULFATE HFA 90 MCG/PUFF 8 GM INHALER IH PRN (08:45)
[2018-08-15] MEDS ORDERED: MAG HYDROX/AL HYDROX/SIMETH ES 30 ML SUSPENSION UDCUP PO PRN (08:45)
[2018-08-15] MEDS ORDERED: MAGNESIUM HYDROXIDE SUSPENSION 30 ML UDCUP PO PRN (08:45)
[2018-08-15] MEDS ORDERED: LOPERAMIDE HCL 2 MG CAPSULE PO PRN (08:45)
[2018-08-15] MEDS: SPIRONOLACTONE 25 MG TABLET PO SCH (09:00)
[2018-08-15] MEDS: CARVEDILOL 25 MG TABLET PO SCH ×2 (09:00→16:48)
[2018-08-15] MEDS: OMEPRAZOLE 20 MG CAPSULE PO SCH (09:09)
[2018-08-15] MEDS: DOCUSATE SODIUM 100 MG CAPSULE PO SCH (09:09)
[2018-08-15] MEDS ORDERED: TRIFLUOPERAZINE HCL 5 MG TABLET PO PRN (12:45)
[2018-08-15] MEDS ORDERED: TRIFLUOPERAZINE HCL 10 MG TABLET PO PRN (13:15)
[2018-08-15 16:17] VITALS: BP 122/81
[2018-08-15] MEDS: TRIHEXYPHENIDYL HCL 2 MG TABLET PO SCH (16:48)
[2018-08-15] MEDS: BENZOCAINE/MENTHOL LOZENGE MM PRN (20:27)
[2018-08-15] MEDS: DIVALPROEX SODIUM 500 MG ER TABLET PO SCH (20:27)
[2018-08-16 00:19] VITALS: BP 124/69
[2018-08-16] MEDS ORDERED: TRIFLUOPERAZINE HCL 10 MG TABLET PO PRN (04:30)
[2018-08-16 08:29] VITALS: BP 106/60
[2018-08-16] MEDS: TRIFLUOPERAZINE HCL 10 MG TABLET PO SCH (08:49)
[2018-08-16] MEDS: SPIRONOLACTONE 25 MG TABLET PO SCH (08:49)
[2018-08-16] MEDS: DOCUSATE SODIUM 100 MG CAPSULE PO SCH (08:49)
[2018-08-16] MEDS: OMEPRAZOLE 20 MG CAPSULE PO SCH (08:49)
[2018-08-16] MEDS: TRIHEXYPHENIDYL HCL 2 MG TABLET PO SCH ×2 (08:49→16:39)
[2018-08-16] MEDS: CARVEDILOL 25 MG TABLET PO SCH ×2 (08:50→16:39)
[2018-08-16] MEDS: NALTREXONE HCL 50 MG TABLET PO SCH (08:50)
[2018-08-16 16:17] VITALS: BP 112/80
[2018-08-16] MEDS: DIVALPROEX SODIUM 500 MG ER TABLET PO SCH (20:47)
[2018-08-17 00:08] VITALS: BP 127/76
[2018-08-17 09:04] VITALS: BP 110/74
[2018-08-17] MEDS: CARVEDILOL 25 MG TABLET PO SCH ×2 (09:50→16:37)
[2018-08-17] MEDS: DOCUSATE SODIUM 100 MG CAPSULE PO SCH (09:50)
[2018-08-17] MEDS: TRIFLUOPERAZINE HCL 10 MG TABLET PO SCH (09:50)
[2018-08-17] MEDS: OMEPRAZOLE 20 MG CAPSULE PO SCH (09:50)
[2018-08-17] MEDS: TRIHEXYPHENIDYL HCL 2 MG TABLET PO SCH ×2 (09:50→16:37)
[2018-08-17] MEDS: NALTREXONE HCL 50 MG TABLET PO SCH (09:50)
[2018-08-17] MEDS: SPIRONOLACTONE 25 MG TABLET PO SCH (09:51)
[2018-08-17 16:37] VITALS: BP 112/79
[2018-08-17] MEDS: IBUPROFEN 600 MG TABLET PO PRN (16:37)
[2018-08-17] MEDS: DIVALPROEX SODIUM 500 MG ER TABLET PO SCH (20:43)
[2018-08-18 00:01] VITALS: BP 122/78
[2018-08-18] MEDS: BENZOCAINE/MENTHOL LOZENGE MM PRN ×2 (00:01→15:39)
[2018-08-18 08:43] VITALS: BP 152/94
[2018-08-18] MEDS: TRIFLUOPERAZINE HCL 10 MG TABLET PO SCH (08:56)
[2018-08-18] MEDS: DOCUSATE SODIUM 100 MG CAPSULE PO SCH (08:56)
[2018-08-18] MEDS: OMEPRAZOLE 20 MG CAPSULE PO SCH (08:56)
[2018-08-18] MEDS: NALTREXONE HCL 50 MG TABLET PO SCH (08:56)
[2018-08-18] MEDS: SPIRONOLACTONE 25 MG TABLET PO SCH (08:56)
[2018-08-18] MEDS: TRIHEXYPHENIDYL HCL 2 MG TABLET PO SCH ×2 (08:56→16:18)
[2018-08-18] MEDS: CARVEDILOL 25 MG TABLET PO SCH ×2 (08:57→16:18)
[2018-08-18 13:14] VITALS: BP 133/82
[2018-08-18] MEDS: IBUPROFEN 600 MG TABLET PO PRN (13:16)
[2018-08-18] MEDS ORDERED: TRIH2TAB3 PO (16:08)
[2018-08-18] MEDS ORDERED: TRIF10 PO (16:08)
[2018-08-18] MEDS ORDERED: DIVA500T52 PO (16:08)
[2018-08-18] MEDS ORDERED: NALT50TA PO (16:08)
[2018-08-18] MEDS ORDERED: DIVA250T45 PO (16:15)
[2018-08-18 16:21] VITALS: BP 119/65
[2018-08-18] MEDS ORDERED: DSS100 PO (16:55)
== END 2018-08-18 17:25 | disposition home or self-care (01) | DRG 885 ==
LOC: EMS 15:46 → B2X 22:00
PROVIDERS: ADMIT Psychiatry & Neurology Psychiatry; ATTEND Psychiatry & Neurology Psychiatry
DX: F20.0 Paranoid schizophrenia (principal); R45.851 Suicidal ideations; B18.2 Chronic viral hepatitis C; E03.9 Hypothyroidism, unspecified; E66.9 Obesity, unspecified; F10.129 Alcohol abuse with intoxication, unspecified; F12.90 Cannabis use, unspecified, uncomplicated; F15.10 Other stimulant abuse, uncomplicated; F17.200 Nicotine dependence, unspecified, uncomplicated; G47.00 Insomnia, unspecified; I10 Essential (primary) hypertension; J06.9 Acute upper respiratory infection, unspecified; J44.9 Chronic obstructive pulmonary disease, unspecified; K70.30 Alcoholic cirrhosis of liver without ascites; M19.90 Unspecified osteoarthritis, unspecified site; Z71.51 Drug abuse counseling and surveillance of drug abuser; Z71.6 Tobacco abuse counseling; Z91.14 Patient's other noncompliance with medication regimen; Z88.0 Allergy status to penicillin
CPT/HCPCS: 83036; 84439; 84443; G0480; J3535